=== PATIENT | female | born 1965 | race Caucasian/White ===

== ENCOUNTER 2016-04-27 13:27 | Emergency (ER) | payer MEDICAID, OTHER ==
[~2016-04-27] VITALS: Ht 160 cm; Wt 64.9 kg
[~2016-04-27 13:27] MED LIST: BENA10TA2 PO; LANS30CA10 PO; METO-306 PO
[2016-04-27 13:54] VITALS: BP 118/77; PULSE 65; RESP 16; TEMP 98.2; O2SAT 99
--- NOTE | 2016-04-27 14:37 | NUR ---
Placed in room 7, ER at bedside examining patient.
[2016-04-27] MEDS ORDERED: DEXAMETHASONE SOD PHOSPHATE 10 MG/ML VIAL IM ONE (14:45)
[2016-04-27] MEDS ORDERED: KETOROLAC TROMETHAMINE 60 MG/2 ML VIAL IM ONE (14:45)
--- NOTE | 2016-04-27 14:46 | NUR ---
Pt states " I think I have bronchitis". Has been sick since [place]. Cough, body aches, weakness. Was seen here 04/07/16 and given abx. C/O headache. Denies n/v/d, denies chest pain
--- NOTE | 2016-04-27 14:52 | NUR ---
Medicated per MD orders.
[2016-04-27 15:07] LABS: BASOPHILS % (AUTO) 0.6 % (0.0-2.0); EOSINOPHILS % (AUTO) 0.5 % (0.0-4.0); HEMATOCRIT 38.1 % (36-48); HEMOGLOBIN 13.1 g/dL (12.0-16.0); LYMPHOCYTES # (AUTO) 0.8 K/uL (1.0-5.5); LYMPHOCYTES % (AUTO) 13.3 % (20.5-51.5); MEAN CORPUSCULAR HEMOGLOBIN 31 pg (27-31); MEAN CORPUSCULAR HGB CONC 35 % (32-36); MEAN CORPUSCULAR VOLUME 89 fL (79.0-98.0); MONOCYTES # (AUTO) 0.4 K/uL (0.0-1.0); MONOCYTES % (AUTO) 5.8 % (1.7-9.3); NEUTROPHILS # (AUTO) 5.1 K/uL (1.8-7.7); NEUTROPHILS % (AUTO) 79.8 % (40.0-70.0); PLATELET COUNT (AUTO) 237 K/uL (130-430); RED CELL DISTRIBUTION WIDTH 13.6 % (9.0-15.0); WHITE BLOOD COUNT (AUTO) 6.3 K/uL (4.8-10.8)
[2016-04-27 15:34] LABS: CALCIUM 9.1 mg/dL (8.4-11.0); CREATININE 0.76 mg/dL (0.55-1.30); POTASSIUM 3.6 mmol/L (3.5-5.1)
[2016-04-27 15:39] LABS: TOTAL BILIRUBIN 0.2 mg/dL (0.0-1.0); TOTAL PROTEIN, SERUM 8.1 g/dL (6.4-8.3)
[2016-04-27 16:40] VITALS: BP 138/71; PULSE 77; RESP 16; TEMP 98; O2SAT 99
--- NOTE | 2016-04-27 16:40 | NUR ---
Patient given written and verbal discharge instructions and verbalizes understanding. ER MD DR. ROD discussed with patient the results and treatment provided. Patient in stable condition. ID arm band removed. Rx oF TELLASON given. Patient educated on pain management and to follow up with PMD. Pain Scale 0/10 Opportunity for questions provided and answered.
== END 2016-04-27 16:40 | disposition home or self-care (01) ==
LOC: SED 13:27
DX: J20.9 Acute bronchitis, unspecified (principal); K21.9 Gastro-esophageal reflux disease without esophagitis; I10 Essential (primary) hypertension; Z88.5 Allergy status to narcotic agent; Z88.8 Allergy status to other drugs, medicaments and biological substances
CPT/HCPCS: 36415; 71010; 80053; 85025; 96372; 99285; J1100; J1885

== ENCOUNTER 2016-07-26 18:04 | Emergency (ER) | payer MEDICAID ==
[~2016-07-26] VITALS: Ht 160 cm; Wt 61.2 kg
[2016-07-26 18:08] VITALS: BP_SYST 143
[2016-07-26] MEDS ORDERED: NACL 0.9% 1,000 ML IV ONE (20:11)
[2016-07-26] MEDS ORDERED: MAG HYDROX/AL HYDROX/SIMETH 30 ML, BELLADONNA ALKALOIDS/PHENOBARB 10 ML, LIDOCAINE VISC... PO ONE ×3 (20:15)
[2016-07-26 20:18] LABS: BILIRUBIN,URINE NEGATIVE (NEGATIVE); BLOOD, URINE 1+ (NEGATIVE); CLARITY/URINE CLEAR (CLEAR); GLUCOSE,URINE NEGATIVE (NEGATIVE); KETONES,URINE NEGATIVE (NEGATIVE); LEUKOCYTE ESTERASE ,URINE NEGATIVE (NEGATIVE); NITRITE, URINE NEGATIVE (NEGATIVE); PH,URINE 5.5 (5.0-8.0); PROTEIN URINE NEGATIVE (NEGATIVE); UROBILINOGEN,URINE 0.2 (0.2-1.0)
[2016-07-26 20:26] LABS: COLOR,URINE STRAW (YELLOW)
[2016-07-26 20:27] LABS: BACTERIA,URINE FEW /HPF (None Seen); RBC,URINE NONE SEEN /HPF (0-3); WBC,URINE 0-3 /HPF (0-3)
[2016-07-26 20:28] LABS: MUCUS,URINE None Seen /LPF (None Seen)
[2016-07-26 20:46] LABS: BASOPHILS # (AUTO) 0.1 K/uL (0.0-0.2); BASOPHILS % (AUTO) 0.8 % (0.0-2.0); EOSINOPHILS % (AUTO) 0.6 % (0.0-4.0); HEMATOCRIT 40.7 % (36-48); HEMOGLOBIN 13.5 g/dL (12.0-16.0); LYMPHOCYTES # (AUTO) 1.4 K/uL (1.0-5.5); LYMPHOCYTES % (AUTO) 19.6 % (20.5-51.5); MEAN CORPUSCULAR HEMOGLOBIN 31 pg (27-31); MEAN CORPUSCULAR HGB CONC 33 % (32-36); MEAN CORPUSCULAR VOLUME 92 fL (79.0-98.0); MONOCYTES # (AUTO) 0.4 K/uL (0.0-1.0); MONOCYTES % (AUTO) 5.3 % (1.7-9.3); NEUTROPHILS # (AUTO) 5.4 K/uL (1.8-7.7); NEUTROPHILS % (AUTO) 73.7 % (40.0-70.0); PLATELET COUNT (AUTO) 234 K/uL (130-430); RED BLOOD CELL COUNT(AUTO) 4.43 MIL/uL (4.2-6.2); RED CELL DISTRIBUTION WIDTH 12.8 % (9.0-15.0); WHITE BLOOD COUNT (AUTO) 7.3 K/uL (4.8-10.8)
[2016-07-26 20:52] LABS: CALCIUM 9.4 mg/dL (8.4-11.0); CREATININE 0.87 mg/dL (0.55-1.30); POTASSIUM 3.7 mmol/L (3.5-5.1); PROTHROMBIN TIME 10.8 SECS (9.5-12.5)
[2016-07-26 20:56] LABS: TOTAL BILIRUBIN 0.2 mg/dL (0.0-1.0); TOTAL PROTEIN, SERUM 8.1 g/dL (6.4-8.3)
[2016-07-26 22:10] VITALS: BP_SYST 131
== END 2016-07-26 22:10 | disposition home or self-care (01) ==
LOC: SED 18:04
DX: F41.9 Anxiety disorder, unspecified (principal); R10.13 Epigastric pain; R52 Pain, unspecified; I10 Essential (primary) hypertension; Z98.84 Bariatric surgery status; Z88.8 Allergy status to other drugs, medicaments and biological substances
CPT/HCPCS: 36415; 80053; 81000; 82150; 83690; 85025; 85610; 85730; 96360; 99284; J2001; J7030

== ENCOUNTER 2016-10-18 12:37 | Emergency (ER) | payer MEDICAID ==
[~2016-10-18] VITALS: Ht 160 cm; Wt 60.8 kg
[2016-10-18 12:37] VITALS: BP_SYST 112
[2016-10-18 18:09] VITALS: BP_SYST 131
== END 2016-10-18 18:09 | disposition home or self-care (01) ==
LOC: SED 12:37
DX: H83.03 Labyrinthitis, bilateral (principal); H93.13 Tinnitus, bilateral; I10 Essential (primary) hypertension; K21.9 Gastro-esophageal reflux disease without esophagitis; Z90.710 Acquired absence of both cervix and uterus; Z88.5 Allergy status to narcotic agent; Z88.8 Allergy status to other drugs, medicaments and biological substances
CPT/HCPCS: 99283

== ENCOUNTER 2016-10-21 12:28 | Emergency (ER) | payer MEDICAID ==
[~2016-10-21] VITALS: Ht 160 cm; Wt 61.2 kg
[2016-10-21 12:50] VITALS: BP_SYST 108
[2016-10-21 14:11] VITALS: BP_SYST 132
== END 2016-10-21 14:11 | disposition home or self-care (01) ==
LOC: SED 12:28
DX: H66.93 Otitis media, unspecified, bilateral (principal); R51 Headache; I10 Essential (primary) hypertension; K21.9 Gastro-esophageal reflux disease without esophagitis; Z79.899 Other long term (current) drug therapy; Z88.6 Allergy status to analgesic agent; Z98.890 Other specified postprocedural states
CPT/HCPCS: 99283

== ENCOUNTER 2016-11-05 23:09 | Emergency (ER) | payer MEDICAID ==
[~2016-11-05] VITALS: Ht 160 cm; Wt 61.7 kg
[2016-11-05 23:20] VITALS: BP_SYST 156
[2016-11-05] MEDS ORDERED: ACETAMINOPHEN 650 MG/20.3 ML UDC PO ONE (23:45)
[2016-11-05] MEDS ORDERED: cloNIDine HCL 0.1 MG TABLET PO ONE (23:45)
[2016-11-05] MEDS ORDERED: NS 500 ML IV ONE (23:45)
[2016-11-06] MEDS ORDERED: ACETAMINOPHEN 325 MG TABLET ONE (00:09)
[2016-11-06 01:05] VITALS: BP_SYST 140
== END 2016-11-06 01:05 | disposition home or self-care (01) ==
LOC: SED 23:09
DX: I10 Essential (primary) hypertension (principal); R51 Headache; R42 Dizziness and giddiness; K21.9 Gastro-esophageal reflux disease without esophagitis; Z90.710 Acquired absence of both cervix and uterus; Z88.5 Allergy status to narcotic agent; Z88.8 Allergy status to other drugs, medicaments and biological substances
CPT/HCPCS: 96360; 99284; J7040

== ENCOUNTER 2016-12-06 19:27 | Emergency (ER) | payer MEDICAID ==
[~2016-12-06] VITALS: Ht 160 cm; Wt 61.7 kg
[2016-12-06 19:35] VITALS: BP_SYST 122
[2016-12-06] MEDS ORDERED: ASPIRIN 325 MG TABLET PO ONE (20:30)
[2016-12-06 20:42] LABS: BASOPHILS % (AUTO) 0.3 % (0.0-2.0); HEMATOCRIT 42.7 % (36-48); LYMPHOCYTES # (AUTO) 0.6 K/uL (1.0-5.5); MEAN CORPUSCULAR HEMOGLOBIN 30 pg (27-31); MEAN CORPUSCULAR HGB CONC 33 % (32-36); MEAN CORPUSCULAR VOLUME 92 fL (79.0-98.0); MONOCYTES # (AUTO) 0.2 K/uL (0.0-1.0); MONOCYTES % (AUTO) 2.8 % (1.7-9.3); NEUTROPHILS # (AUTO) 8.1 K/uL (1.8-7.7); NEUTROPHILS % (AUTO) 89.9 % (40.0-70.0); PLATELET COUNT (AUTO) 261 K/uL (130-430); RED BLOOD CELL COUNT(AUTO) 4.64 MIL/uL (4.2-6.2); RED CELL DISTRIBUTION WIDTH 13.4 % (9.0-15.0); WHITE BLOOD COUNT (AUTO) 8.9 K/uL (4.8-10.8)
[2016-12-06 20:52] LABS: BILIRUBIN,URINE NEGATIVE (NEGATIVE); BLOOD, URINE 1+ (NEGATIVE); CLARITY/URINE CLEAR (CLEAR); GLUCOSE,URINE NEGATIVE (NEGATIVE); KETONES,URINE NEGATIVE (NEGATIVE); LEUKOCYTE ESTERASE ,URINE NEGATIVE (NEGATIVE); NITRITE, URINE NEGATIVE (NEGATIVE); PH,URINE 6.5 (5.0-8.0); PROTEIN URINE NEGATIVE (NEGATIVE); UROBILINOGEN,URINE 0.2 (0.2-1.0)
[2016-12-06 20:53] LABS: COLOR,URINE STRAW (YELLOW)
[2016-12-06 20:53] LABS: CALCIUM 9.4 mg/dL (8.4-11.0); CREATININE 0.97 mg/dL (0.55-1.30); POTASSIUM 4.2 mmol/L (3.5-5.1)
[2016-12-06 20:54] LABS: BACTERIA,URINE FEW /HPF (None Seen); RBC,URINE 0-3 /HPF (0-3); WBC,URINE NONE SEEN /HPF (0-3)
[2016-12-06 20:55] LABS: MUCUS,URINE None Seen /LPF (None Seen)
[2016-12-06 20:58] LABS: ALBUMIN 3.8 g/dL (3.4-4.8); TOTAL BILIRUBIN 0.1 mg/dL (0.0-1.0)
[2016-12-06] MEDS ORDERED: ONDANSETRON HCL 4 MG/2 ML VIAL IVP ONE (21:00)
[2016-12-06] MEDS ORDERED: NACL 0.9% 1,000 ML IV ONE (21:00)
[2016-12-06] MEDS ORDERED: MAGNESIUM CITRATE 300 ML ORAL SOLUTION PO ONE (21:45)
[2016-12-07] MEDS ORDERED: LACTULOSE 20 GM/30 ML UDC PO ONE (00:15)
[2016-12-07] MEDS ORDERED: MAG-AL HYDROX/SIMETH 30 ML UDC PO ONE (00:15)
[2016-12-07 00:20] VITALS: BP_SYST 112
== END 2016-12-07 00:20 | disposition home or self-care (01) ==
LOC: SED 19:27
DX: K56.41 Fecal impaction (principal); R07.9 Chest pain, unspecified; R11.0 Nausea; K21.9 Gastro-esophageal reflux disease without esophagitis; I10 Essential (primary) hypertension; M79.7 Fibromyalgia; Z90.49 Acquired absence of other specified parts of digestive tract
CPT/HCPCS: 36415; 71010; 74176; 80053; 81000; 81025; 83690; 83880; 84484; 85025; 93005; 96361; 96374; 99285; J2405; J7030

== ENCOUNTER 2017-01-09 20:20 | Emergency (ER) | payer MEDICAID ==
[~2017-01-09] VITALS: Ht 160 cm; Wt 61.7 kg
[2017-01-09 20:30] VITALS: BP_SYST 138
[2017-01-09] MEDS ORDERED: ACETAMINOPHEN 325 MG TABLET PO ONE (23:00)
[2017-01-10 01:39] VITALS: BP_SYST 133
== END 2017-01-10 01:39 | disposition home or self-care (01) ==
LOC: SED 20:20
DX: M19.012 Primary osteoarthritis, left shoulder (principal); M54.2 Cervicalgia; K21.9 Gastro-esophageal reflux disease without esophagitis; I10 Essential (primary) hypertension; M79.7 Fibromyalgia; Z88.6 Allergy status to analgesic agent; Z79.899 Other long term (current) drug therapy
CPT/HCPCS: 72125-TC; 93005; 99284

== ENCOUNTER 2017-03-14 16:33 | Emergency (ER) | payer SELFPAY ==
[~2017-03-14] VITALS: Ht 160 cm; Wt 60.3 kg
[2017-03-14 17:05] VITALS: BP_SYST 148
--- NOTE | 2017-03-14 17:11 | NUR ---
Patient triaged and placed in waiting room. VSS and patient appears in no acute distress at this time. Accompanied by FAMILY, awaiting available bed, and MD notified of need for MSE.
[2017-03-14 18:35] VITALS: BP_SYST 145
--- NOTE | 2017-03-14 20:01 | NUR ---
CALLED IN, NO ANSWER
--- NOTE | 2017-03-14 20:02 | NUR ---
CALLED IN, NO ANSWER
--- NOTE | 2017-03-14 20:03 | NUR ---
CALLED IN, NO ANSWER, LEFT WITHOUT BEING SEEN BY ER MD, NO FURTHER TREATMENT GIVEN
== END 2017-03-14 20:03 | disposition left against medical advice (07) ==
LOC: SED 16:33
DX: I10 Essential (primary) hypertension (principal); Z53.21 Procedure and treatment not carried out due to patient leaving prior to being seen by health care provider